=== PATIENT | male | born 1995 | race Two or more races ===

== ENCOUNTER → 2017-10-28 | Outpatient (CLI) | payer OTHER | LOC: CIMAGING 15:32 | PROVIDERS: ATTEND Family Medicine | DX: J45.909 Unspecified asthma, uncomplicated (principal) | CPT/HCPCS: 71046-PO ==

== ENCOUNTER → 2018-05-03 | Outpatient (CLI) | payer OTHER | LOC: CIMAGING 08:01 | PROVIDERS: ATTEND Family Medicine | DX: I86.1 Scrotal varices (principal); N50.3 Cyst of epididymis | CPT/HCPCS: 76870-PO ==

== ENCOUNTER → 2018-07-27 | Outpatient (CLI) | payer OTHER | LOC: CIMAGING 16:47 | PROVIDERS: ATTEND Family Medicine | DX: R59.0 Localized enlarged lymph nodes (principal); M54.2 Cervicalgia | CPT/HCPCS: 76536-PO ==

== ENCOUNTER → 2018-09-08 | Outpatient (CLI) | payer OTHER | LOC: CIMAGING 07:26 | PROVIDERS: ATTEND Nurse Practitioner Family | DX: K76.0 Fatty (change of) liver, not elsewhere classified (principal) | CPT/HCPCS: 76705-PO ==